=== PATIENT | male | born 1940 | race Caucasian/White ===

== ENCOUNTER 2017-05-11 20:47 | Inpatient (IN) | payer MEDICARE, MEDICAID ==
[~2017-05-11] VITALS: Ht 170.2 cm; Wt 70.3 kg
[~2017-05-11 20:47] MED LIST: AMIO200T2 PO; DABI150C PO; DUTA0.5C PO; TAMS-3 PO
[2017-05-11] MEDS ORDERED: EDOX30TA PO (23:26)
[2017-05-11] MEDS ORDERED: TAMS0.4C34 PO (23:26)
[2017-05-11] MEDS ORDERED: RAMI2.5C PO (23:26)
[2017-05-11] MEDS ORDERED: DUTA0.5C PO (23:26)
[2017-05-11] MEDS ORDERED: ESOM40CA PO (23:26)
[2017-05-11] MEDS ORDERED: METF500T4 PO (23:26)
[2017-05-11] MEDS ORDERED: ROSU10TA PO (23:26)
[2017-05-11] MEDS ORDERED: CHOL100043 PO (23:26)
[2017-05-11] MEDS ORDERED: QUET50TA PO (23:26)
[2017-05-11] MEDS ORDERED: POTA10TA21 PO (23:26)
[2017-05-11] MEDS ORDERED: METO25TA6 PO (23:26)
[2017-05-12 01:03] LABS: BASOPHILS % (AUTO) 0.2 % (0.0-2.0); EOSINOPHILS % (AUTO) 0.5 % (0.0-7.0); HEMATOCRIT 37.4 % (36.7-47.1); HEMOGLOBIN 12.8 g/dL (12.5-16.3); LYMPHOCYTES # (AUTO) 3.9 K/uL (20.0-40.0); LYMPHOCYTES % (AUTO) 48.1 % (20.5-51.5); MEAN CORPUSCULAR HEMOGLOBIN 29.6 uug (23.8-33.4); MEAN CORPUSCULAR HGB CONC 34 g/dL (32.5-36.3); MEAN CORPUSCULAR VOLUME 86.1 fL (73.0-96.2); MONOCYTES # (AUTO) 0.6 K/uL (2.0-10.0); MONOCYTES % (AUTO) 7.6 % (0.0-11.0); NEUTROPHILS # (AUTO) 3.5 K/uL (1.8-8.9); NEUTROPHILS % (AUTO) 43.6 % (38.5-71.5); PLATELET COUNT (AUTO) 107 K/uL (152-348); RED BLOOD CELL COUNT(AUTO) 4.34 MIL/uL (4.06-5.63); WHITE BLOOD COUNT (AUTO) 8.1 K/uL (3.6-10.2)
[2017-05-12 01:08] LABS: CARBON DIOXIDE 29 mmol/L (21-32); CHLORIDE 106 mmol/L (98-107); CREATININE 0.9 mg/dL (0.6-1.3); GLUCOSE 156 mg/dL (74-106); POTASSIUM 3.7 mmol/L (3.5-5.1); UREA NITROGEN, BLOOD 13 mg/dL (7-18)
[2017-05-12 01:20] LABS: ALANINE AMINOTRANSFERASE 31 U/L (16-63); ALKALINE PHOSPHATASE 48 U/L (50-136); ASPARTATE AMINOTRANSFERASE 14 U/L (15-37); BILIRUBIN,DIRECT 0.2 mg/dL (0.0-0.2); BILIRUBIN,TOTAL 0.8 mg/dL (0.2-1.0); TOTAL PROTEIN, SERUM 5.7 g/dL (6.4-8.2)
[2017-05-12] MEDS ORDERED: ALBUTEROL SULFATE 2.5 MG/ 0.5 ML NEBU NEB PRN (03:00)
[2017-05-12] MEDS ORDERED: DEXTROSE 50% 50 ML DISP.SYRIN IV PRN (03:15)
[2017-05-12] MEDS ORDERED: ACETAMINOPHEN 325 MG TABLET PO ONE (06:15)
[2017-05-12] MEDS ORDERED: ACETAMINOPHEN ES 500 MG TABLET ONE (06:28)
[2017-05-12] MEDS: BLOOD SUGAR DIAGNOSTIC 1 EACH STRIP VI SCH ×4 (08:00→21:21)
[2017-05-12] MEDS ORDERED: INSULIN REGULAR, HUMAN 300 UNIT/3 ML VIAL ONE (08:26)
[2017-05-12] MEDS ORDERED: POTASSIUM CITRATE 15 MEQ PO SCH (09:00)
[2017-05-12] MEDS ORDERED: Medication Not On Formulary EA (Esomeprazole Mag Trihydrate (Nexium) 40 MG) PO SCH (09:00)
[2017-05-12] MEDS ORDERED: EDOXABAN TOSYLATE 30 MG PO SCH (09:00)
[2017-05-12] MEDS ORDERED: Medication Not On Formulary EA (Rosuvastatin Calcium (Crestor) 10 MG) PO SCH (09:00)
[2017-05-12] MEDS ORDERED: DUTASTERIDE 0.5 MG CAPSULE PO SCH (09:00)
[2017-05-12] MEDS ORDERED: RAMIPRIL 2.5 MG CAPSULE PO SCH (09:00)
[2017-05-12] MEDS ORDERED: CHOLECALCIFEROL 1,000 UNIT TABLET PO SCH (09:00)
[2017-05-12] MEDS ORDERED: METOPROLOL TARTRATE 25 MG TABLET PO SCH (09:00)
[2017-05-12] MEDS: FUROSEMIDE 40 MG/4 ML VIAL IV SCH ×2 (09:39→21:05)
[2017-05-12] MEDS: TAMSULOSIN HCL 0.4 MG CAP.SR.24H PO SCH (09:40)
[2017-05-12] MEDS ORDERED: FUROSEMIDE 40 MG/4 ML VIAL ONE (09:52)
[2017-05-12] MEDS ORDERED: TAMSULOSIN HCL 0.4 MG CAP.SR.24H ONE (09:52)
[2017-05-12] MEDS ORDERED: METOPROLOL TARTRATE 50 MG TABLET ONE (10:09)
[2017-05-12] MEDS: PANTOPRAZOLE SODIUM 40 MG TABLET.DR PO SCH (11:45)
[2017-05-12] MEDS: CHOLECALCIFEROL 1,000 UNIT TABLET PO SCH (11:45)
[2017-05-12] MEDS: DUTASTERIDE 0.5 MG CAPSULE PO SCH (11:45)
[2017-05-12] MEDS: RAMIPRIL 2.5 MG CAPSULE PO SCH (11:46)
[2017-05-12] MEDS ORDERED: PANTOPRAZOLE SODIUM 40 MG TABLET.DR PO ONE (11:57)
[2017-05-12] MEDS: ALBUTEROL SULFATE 2.5 MG/3 ML NEBU NEB PRN (19:03)
[2017-05-12] MEDS ORDERED: ALBUTEROL SULFATE 2.5 MG/3 ML NEBU ONE (19:25)
[2017-05-12] MEDS ORDERED: Medication Not On Formulary EA (Quetiapine Fumarate (Seroquel) 50 MG) PO SCH (21:00)
[2017-05-12] MEDS: ATORVASTATIN 10 MG TABLET PO SCH (21:03)
[2017-05-12] MEDS: QUETIAPINE FUMARATE 25 MG TABLET PO SCH (21:03)
[2017-05-12 21:08] VITALS: BP 126/86
[2017-05-12 21:21] VITALS: BP 126/86
[2017-05-12] MEDS: INSULIN REGULAR, HUMAN 300 UNITS/3 ML VIAL SQ PRN (21:22)
[2017-05-13] VITALS: BP 102/70
[2017-05-13 04:00] VITALS: BP 106/79
[2017-05-13] MEDS: PANTOPRAZOLE SODIUM 40 MG TABLET.DR PO SCH (06:07)
[2017-05-13] MEDS: BLOOD SUGAR DIAGNOSTIC 1 EACH STRIP VI SCH ×4 (06:36→20:20)
[2017-05-13 07:58] LABS: BASOPHILS % (AUTO) 0.1 % (0.0-2.0); EOSINOPHILS % (AUTO) 0.4 % (0.0-7.0); HEMATOCRIT 40.8 % (36.7-47.1); HEMOGLOBIN 14.1 g/dL (12.5-16.3); LYMPHOCYTES # (AUTO) 5.2 K/uL (20.0-40.0); LYMPHOCYTES % (AUTO) 52.4 % (20.5-51.5); MEAN CORPUSCULAR HEMOGLOBIN 29.9 uug (23.8-33.4); MEAN CORPUSCULAR HGB CONC 35 g/dL (32.5-36.3); MEAN CORPUSCULAR VOLUME 86.4 fL (73.0-96.2); MONOCYTES # (AUTO) 0.6 K/uL (2.0-10.0); NEUTROPHILS # (AUTO) 4.1 K/uL (1.8-8.9); NEUTROPHILS % (AUTO) 41.1 % (38.5-71.5); PLATELET COUNT (AUTO) 130 K/uL (152-348); RED BLOOD CELL COUNT(AUTO) 4.72 MIL/uL (4.06-5.63); WHITE BLOOD COUNT (AUTO) 9.9 K/uL (3.6-10.2)
[2017-05-13] MEDS: INSULIN REGULAR, HUMAN 300 UNIT/3 ML VIAL SQ PRN ×3 (08:04→17:08)
[2017-05-13 08:40] LABS: CARBON DIOXIDE 29 mmol/L (21-32); CHLORIDE 104 mmol/L (98-107); GLUCOSE 169 mg/dL (74-106); MAGNESIUM 1.5 mg/dL (1.8-2.4); PHOSPHOROUS 3.8 mg/dL (2.5-4.9); POTASSIUM 3.3 mmol/L (3.5-5.1); UREA NITROGEN, BLOOD 17 mg/dL (7-18)
[2017-05-13] MEDS: CHOLECALCIFEROL 1,000 UNIT TABLET PO SCH (09:02)
[2017-05-13] MEDS: TAMSULOSIN HCL 0.4 MG CAP.SR.24H PO SCH (09:02)
[2017-05-13] MEDS: FUROSEMIDE 40 MG/4 ML VIAL IV SCH (09:02)
[2017-05-13] MEDS: DUTASTERIDE 0.5 MG CAPSULE PO SCH (09:02)
[2017-05-13] MEDS: RAMIPRIL 2.5 MG CAPSULE PO SCH (09:03)
[2017-05-13] MEDS: ALBUTEROL SULFATE 2.5 MG/3 ML NEBU NEB PRN (09:24)
[2017-05-13 09:44] LABS: EOSINOPHILS % (MANUAL) 1 % (0-8); LYMPHOCYTES % (MANUAL) 46 % (20-40); MONOCYTES % (MANUAL) 4 % (2-10); NEUTROPHILS % (MANUAL) 49 % (42-75)
[2017-05-13 11:33] VITALS: BP 99/50
[2017-05-13] MEDS ORDERED: MAGNESIUM SULFATE 1 GM in IV DEXTROSE 5% 50 ML IV ONE (11:45)
[2017-05-13] MEDS ORDERED: POTASSIUM CHLORIDE 20 MEQ TAB.PRT.SR PO ONE (11:45)
[2017-05-13] MEDS ORDERED: MAGNESIUM SULFATE/D5W 100 ML IV SCH (12:15)
[2017-05-13] MEDS ORDERED: ALBUTEROL SULFATE 2.5 MG/3 ML NEBU NEB SCH (13:30)
[2017-05-13] MEDS: ALBUTEROL SULFATE 2.5 MG/3 ML NEBU NEB SCH ×3 (13:57→23:30)
[2017-05-13] MEDS: METOPROLOL TARTRATE 25 MG TABLET PO SCH (14:00)
[2017-05-13 15:06] VITALS: BP 105/56
[2017-05-13 20:00] VITALS: BP 107/58
[2017-05-13] MEDS: QUETIAPINE FUMARATE 25 MG TABLET PO SCH (20:06)
[2017-05-13] MEDS: ATORVASTATIN 10 MG TABLET PO SCH (20:06)
[2017-05-13] MEDS: INSULIN REGULAR, HUMAN 300 UNITS/3 ML VIAL SQ PRN (20:21)
[2017-05-13] MEDS ORDERED: diphenhydrAMINE 50 MG CAPSULE PO ONE (21:00)
[2017-05-14] VITALS: BP 107/55
[2017-05-14] MEDS: ALBUTEROL SULFATE 2.5 MG/3 ML NEBU NEB SCH ×5 (03:27→19:30)
[2017-05-14 04:00] VITALS: BP 100/60
[2017-05-14] MEDS: PANTOPRAZOLE SODIUM 40 MG TABLET.DR PO SCH (06:12)
[2017-05-14] MEDS: BLOOD SUGAR DIAGNOSTIC 1 EACH STRIP VI SCH ×3 (06:32→17:00)
[2017-05-14] MEDS: INSULIN REGULAR, HUMAN 300 UNIT/3 ML VIAL SQ PRN ×2 (08:30→17:30)
[2017-05-14] MEDS: DUTASTERIDE 0.5 MG CAPSULE PO SCH (08:45)
[2017-05-14] MEDS: TAMSULOSIN HCL 0.4 MG CAP.SR.24H PO SCH (08:45)
[2017-05-14] MEDS: RAMIPRIL 2.5 MG CAPSULE PO SCH (08:45)
[2017-05-14] MEDS: POTASSIUM CHLORIDE 8 MEQ CAPSULE.SA PO SCH ×2 (08:45→17:30)
[2017-05-14] MEDS: CHOLECALCIFEROL 1,000 UNIT TABLET PO SCH (08:46)
[2017-05-14] MEDS: METOPROLOL TARTRATE 25 MG TABLET PO SCH (08:46)
[2017-05-14 11:44] VITALS: BP 106/64
[2017-05-14] MEDS ORDERED: OSEL75CA PO (14:35)
[2017-05-14 15:28] VITALS: BP 103/70
[2017-05-14 20:00] VITALS: BP 117/73
== END 2017-05-14 19:45 | disposition home or self-care (01) | DRG 292 ==
LOC: ER 20:48 → TRANSITION 05-12 10:37 → TELE 05-12 20:20
PROVIDERS: ADMIT Internal Medicine
DX: I11.0 Hypertensive heart disease with heart failure (principal); D68.59 Other primary thrombophilia; I48.0 Paroxysmal atrial fibrillation; I50.33 Acute on chronic diastolic (congestive) heart failure; J22 Unspecified acute lower respiratory infection; B97.89 Other viral agents as the cause of diseases classified elsewhere; Z95.0 Presence of cardiac pacemaker; Z79.84 Long term (current) use of oral hypoglycemic drugs; G89.29 Other chronic pain; M54.5 Low back pain; K21.9 Gastro-esophageal reflux disease without esophagitis; E78.5 Hyperlipidemia, unspecified; N40.0 Benign prostatic hyperplasia without lower urinary tract symptoms; Z79.01 Long term (current) use of anticoagulants; Z79.899 Other long term (current) drug therapy; E11.9 Type 2 diabetes mellitus without complications
CPT/HCPCS: 36415; 70030-TC; 71045; 83605; 83735; 84100; 85025; 85730; 87040; 87400; 93005; 93307; 94640; A4663; J1815; J1940; J3475; J3490; J7050; J7060; Q0163

== ENCOUNTER 2022-06-28 21:20 | Emergency (ER) | payer MEDICARE, OTHER ==
[~2022-06-28] VITALS: Ht 170.2 cm; Wt 56.7 kg
[~2022-06-28 21:20] MED LIST changes: -AMIO200T2 PO; +CHOL100043 PO; -DABI150C PO; +EDOX30TA2 PO; +ESOM40CA PO; +METF-440 PO; +METO25TA6 PO; +OSEL75CA PO; +POTA10TA21 PO; +QUET50TA PO; +RAMI2.5C55 PO; +ROSU10TA2 PO; -TAMS-3 PO; +TAMS0.4C34 PO
--- NOTE | 2022-06-28 22:06 | NUR ---
Dr Yanez at bedside MSE in progress
[2022-06-28 22:34] LABS: HEMATOCRIT 38.9 % (36.7-47.1); MEAN CORPUSCULAR HEMOGLOBIN 29.6 uug (23.8-33.4); MEAN CORPUSCULAR VOLUME 89.3 fL (73.0-96.2); PLATELET COUNT (AUTO) 113 K/uL (152-348)
[2022-06-28 22:43] LABS: CARBON DIOXIDE 31 mmol/L (21-32); CHLORIDE 105 mmol/L (98-107); CREATININE 1.6 mg/dL (0.6-1.3); GLUCOSE 108 mg/dL (74-106); POTASSIUM 4.4 mmol/L (3.5-5.1); UREA NITROGEN, BLOOD 28 mg/dL (7-18)
[2022-06-28 22:51] LABS: ALANINE AMINOTRANSFERASE 46 U/L (16-63); ALKALINE PHOSPHATASE 42 U/L (50-136); ASPARTATE AMINOTRANSFERASE 24 U/L (15-37); BILIRUBIN,DIRECT 0.1 mg/dL (0.0-0.2); BILIRUBIN,TOTAL 0.5 mg/dL (0.2-1.0); TOTAL PROTEIN, SERUM 6.1 g/dL (6.4-8.2)
[2022-06-28 23:03] LABS: *BILIRUBIN,URIN NEGATIVE (NEGATIVE); *BLOOD, URINE NEGATIVE (NEGATIVE); *CLARITY,URINE CLEAR (CLEAR); *COLOR,URINE YELLOW (YELLOW); *KETONES,URINE TRACE (NEGATIVE); *UROBILINOGEN,URINE 0.2 E.U./dl (NORMAL); LEUKOCYTE ESTERASE ,URINE NEGATIVE (NEGATIVE); NITRITE, URINE NEGATIVE (NEGATIVE); PH,URINE 5.5 (5.0-8.0); UGLUCOSE NEGATIVE (NEGATIVE)
[2022-06-28 23:12] LABS: MAGNESIUM 1.6 mg/dL (1.8-2.4)
[2022-06-28] MEDS ORDERED: CYANOCOBALAMIN 1000 MCG/ML VIAL IM ONE (23:30)
[2022-06-28] MEDS ORDERED: MAGNESIUM SULFATE/D5W 300 ML ONE (23:48)
[2022-06-28] MEDS ORDERED: CYANOCOBALAMIN 1000 MCG/ML VIAL ONE (23:48)
[2022-06-28] MEDS: MAGNESIUM SULFATE/D5W 100 ML IV SCH (23:55)
[2022-06-29] MEDS: MAGNESIUM SULFATE/D5W 100 ML IV SCH ×2 (00:30→00:37)
[2022-06-29] MEDS ORDERED: BISA10SU61 RC (00:48)
[2022-06-29] MEDS ORDERED: BISA-79 PO (00:48)
[2022-06-29] MEDS ORDERED: BLOO-1730 MC (02:23)
[2022-06-29] MEDS ORDERED: SYRI-29 MC (02:28)
[2022-06-29] MEDS ORDERED: MECO10006 IM (02:28)
--- NOTE | 2022-06-29 02:52 | NUR ---
Patient discharged to home in stable condition. Written and verbal after care instructions given. Patient verbalizes understanding of instructions. Stressed follow up or return to ER for worsening s/s. Patient is a/ox4, NAD noted, patient is able to walk with steady gait, accompanied by hi daughter
[2022-06-29 02:53] VITALS: BP 137/83
== END 2022-06-29 03:08 | disposition home or self-care (01) ==
LOC: ER 21:22
DX: R20.2 Paresthesia of skin (principal); E53.8 Deficiency of other specified B group vitamins; K59.00 Constipation, unspecified; E83.42 Hypomagnesemia; I48.91 Unspecified atrial fibrillation; Z95.0 Presence of cardiac pacemaker; K21.9 Gastro-esophageal reflux disease without esophagitis; N40.0 Benign prostatic hyperplasia without lower urinary tract symptoms; C91.10 Chronic lymphocytic leukemia of B-cell type not having achieved remission
CPT/HCPCS: 99285; 96365; 71045; 80076; 80048; 81003; 82607; 83735; 85025; 84484; 36415; 93005; 74021; 96372; 96366; J3420; J3475; A4663

== ENCOUNTER 2022-08-23 21:58 | Emergency (ER) | payer MEDICARE, OTHER ==
[~2022-08-23] VITALS: Ht 162.6 cm; Wt 65.8 kg
[~2022-08-23 21:58] MED LIST changes: +BISA-79 PO; +BISA10SU61 RC; +BLOO-1730 MC; +MECO10006 IM; +SYRI-29 MC
[2022-08-23] MEDS ORDERED: CEFTRIAXONE 1 G in IV DEXTROSE 5% 50 ML IV ONE (22:30)
[2022-08-23] MEDS ORDERED: CEFTRIAXONE /D5W 50ML IVPB **ER PYXIS IV ONE (22:35)
[2022-08-23 22:49] LABS: HEMATOCRIT 36.7 % (36.7-47.1); MEAN CORPUSCULAR HEMOGLOBIN 30.2 uug (23.8-33.4); MEAN CORPUSCULAR VOLUME 89.7 fL (73.0-96.2); PLATELET COUNT (AUTO) 91 K/uL (152-348)
[2022-08-23 22:52] LABS: CARBON DIOXIDE 31 mmol/L (21-32); CHLORIDE 106 mmol/L (98-107); CREATININE 1.2 mg/dL (0.6-1.3); GLUCOSE 127 mg/dL (74-106); POTASSIUM 4.6 mmol/L (3.5-5.1); UREA NITROGEN, BLOOD 26 mg/dL (7-18)
[2022-08-23] MEDS ORDERED: SULFAMETH/TRIMETH 800/160 MG TABLET PO ONE (23:15)
[2022-08-23] MEDS ORDERED: SULFAMETH/TRIMETH 800/160 MG TABLET ONE (23:44)
--- NOTE | 2022-08-24 00:11 | NUR ---
Patient discharged to home in stable condition. Written and verbal after care instructions given. Patient verbalizes understanding of instructions. Stressed follow up or return to ER for worsening s/s.
[2022-08-24] MEDS ORDERED: SULF1TAB48 PO ×2 (00:15→11:26)
[2022-08-24 00:24] VITALS: BP 133/88
== END 2022-08-24 00:31 | disposition home or self-care (01) ==
LOC: ER 21:58
DX: L03.115 Cellulitis of right lower limb (principal); M71.21 Synovial cyst of popliteal space [Baker], right knee; I48.91 Unspecified atrial fibrillation; K21.9 Gastro-esophageal reflux disease without esophagitis; E11.9 Type 2 diabetes mellitus without complications; Z95.0 Presence of cardiac pacemaker; Z88.1 Allergy status to other antibiotic agents; Z79.899 Other long term (current) drug therapy
CPT/HCPCS: 99284; 96365; 93971; 80048; 85025; 36415; 73590; J0696; A4663

== ENCOUNTER 2022-08-25 15:05 | Emergency (ER) | payer MEDICARE, OTHER ==
[~2022-08-25] VITALS: Ht 170.2 cm; Wt 75.3 kg
[~2022-08-25 15:05] MED LIST changes: +SULF1TAB48 PO
[2022-08-25] MEDS ORDERED: NEOMY/BACITRAC/POLYMI OINT 28.35 GM TUBE ONE (15:18)
[2022-08-25 15:33] VITALS: BP 136/70
[2022-08-25] MEDS ORDERED: NEOMY/BACITRA/POLYMYXIN B OINT UD PACKET TP ONE (15:45)
== END 2022-08-25 15:33 | disposition home or self-care (01) ==
LOC: ER 15:05
DX: L97.919 Non-pressure chronic ulcer of unspecified part of right lower leg with unspecified severity (principal); I48.91 Unspecified atrial fibrillation; K21.9 Gastro-esophageal reflux disease without esophagitis; E11.9 Type 2 diabetes mellitus without complications; Z95.0 Presence of cardiac pacemaker; Z88.1 Allergy status to other antibiotic agents; Z79.899 Other long term (current) drug therapy
CPT/HCPCS: A4663

== ENCOUNTER 2024-09-25 12:12 | Emergency (ER) | payer MEDICARE, OTHER ==
[~2024-09-25] VITALS: Ht 170.2 cm; Wt 79.4 kg
[2024-09-25 12:48] LABS: CARBON DIOXIDE 27 mmol/L (21-32); CHLORIDE 106 mmol/L (98-107); CREATININE 1.1 mg/dL (0.6-1.3); GLUCOSE 127 mg/dL (74-106); POTASSIUM 4.4 mmol/L (3.5-5.1); SODIUM SERUM 143 mmol/L (136-145); UREA NITROGEN, BLOOD 24 mg/dL (7-18)
[2024-09-25] MEDS ORDERED: SERT50TA PO (12:49)
[2024-09-25] MEDS ORDERED: GABA300C PO (12:49)
[2024-09-25] MEDS ORDERED: TRIA0.2585 PO (12:49)
[2024-09-25] MEDS ORDERED: DUTA0.5C37 PO (12:49)
[2024-09-25] MEDS ORDERED: LISI10TA29 PO (12:49)
[2024-09-25] MEDS ORDERED: AMIO100T4 PO (12:49)
[2024-09-25] MEDS ORDERED: SITA50TA GT (12:49)
[2024-09-25] MEDS ORDERED: TRAM50TA2 PO (12:49)
[2024-09-25] MEDS ORDERED: LINA290C PO (12:49)
[2024-09-25] MEDS ORDERED: METO-356 PO (12:49)
[2024-09-25] MEDS ORDERED: ASPI81TA31 PO (12:49)
[2024-09-25] MEDS ORDERED: CHOL10005 PO (12:49)
[2024-09-25] MEDS ORDERED: METF-442 PO (12:49)
[2024-09-25] MEDS ORDERED: APIX2.5T PO (12:49)
[2024-09-25] MEDS ORDERED: METO-295 PO (12:49)
[2024-09-25] MEDS ORDERED: FOLI1TAB27 PO (12:49)
[2024-09-25] MEDS ORDERED: CARB1TAB21 PO (12:49)
[2024-09-25] MEDS ORDERED: OLAN2.5T3 PO (12:49)
[2024-09-25] MEDS ORDERED: TAMS-3 PO (12:49)
[2024-09-25 12:52] LABS: ETHANOL < 3 MG/DL (0-10)
[2024-09-25 12:58] LABS: ACETAMINOPHEN < 2.0 ug/mL (10-30); ALANINE AMINOTRANSFERASE 12 U/L (16-63); ALBUMIN 3.3 g/dL (3.4-5.0); ALKALINE PHOSPHATASE 51 U/L (50-136); ASPARTATE AMINOTRANSFERASE 15 U/L (15-37); BILIRUBIN,DIRECT 0.3 mg/dL (0.0-0.2); BILIRUBIN,TOTAL 0.9 mg/dL (0.2-1.0); TOTAL PROTEIN, SERUM 5.9 g/dL (6.4-8.2)
[2024-09-25 13:03] LABS: AMMONIA < 10 umol/L (11-32); BASOPHILS % (AUTO) 0.2 % (0.0-2.0); EOSINOPHILS # (AUTO) 0.1 K/uL (0.0-0.7); EOSINOPHILS % (AUTO) 0.4 % (0.0-7.0); HEMATOCRIT 41.4 % (36.7-47.1); HEMOGLOBIN 13.6 g/dL (12.5-16.3); LYMPHOCYTES # (AUTO) 6.4 K/uL (0.8-4.8); LYMPHOCYTES % (AUTO) 39.8 % (20.5-51.5); MEAN CORPUSCULAR HGB CONC 33 g/dL (32.5-36.3); MEAN CORPUSCULAR VOLUME 88.3 fL (73.0-96.2); MONOCYTES # (AUTO) 1.2 K/uL (0.1-1.30); MONOCYTES % (AUTO) 7.2 % (0.0-11.0); NEUTROPHILS # (AUTO) 8.5 K/uL (1.8-8.9); NEUTROPHILS % (AUTO) 52.4 % (38.5-71.5); PLATELET COUNT (AUTO) 104 K/uL (152-348); RED BLOOD CELL COUNT(AUTO) 4.69 MIL/uL (4.06-5.63); RED CELL DISTRIBUTION WIDTH 14.6 % (12.1-16.2); WHITE BLOOD COUNT (AUTO) 16.1 K/uL (3.6-10.2)
[2024-09-25 13:08] LABS: THYROID STIMULATING HORMONE 1.721 mIU/mL (0.358-3.740)
[2024-09-25 13:19] LABS: *BILIRUBIN,URIN NEGATIVE (NEGATIVE); *BLOOD, URINE 2+ (NEGATIVE); *CLARITY,URINE CLEAR (CLEAR); *COLOR,URINE YELLOW (YELLOW); *KETONES,URINE NEGATIVE (NEGATIVE); *PROTEIN,URINE NEGATIVE (NEGATIVE); *UROBILINOGEN,URINE 0.2 E.U./dl (NORMAL); LEUKOCYTE ESTERASE ,URINE NEGATIVE (NEGATIVE); NITRITE, URINE NEGATIVE (NEGATIVE); PH,URINE 5.5 (5.0-8.0); UGLUCOSE NEGATIVE (NEGATIVE)
[2024-09-25 13:30] LABS: *AMPHETAMINE, URINE NEGATIVE (NEGATIVE); *BARBITURATE, URINE NEGATIVE (NEGATIVE); *BENZODIAZEPINE, URINE POSITIVE (NEGATIVE); *CANNABINOID, URINE NEGATIVE (NEGATIVE); *COCCAINE, URINE NEGATIVE (NEGATIVE); *OPIATE, URINE POSITIVE (NEGATIVE); *PHENCYCLIDINE SCREEN,URINE NEGATIVE (NEGATIVE); FENTANYL, URINE NEGATIVE (NEGATIVE)
[2024-09-25 13:41] LABS: BACTERIA,URINE FEW /HPF (NONE SEEN); RBC,URINE 20-50 /HPF (0-3); SQUAMOUS EPITHELIAL CELL,UR FEW /HPF (NONE SEEN)
[2024-09-25 13:42] LABS: CALCIUM OXALATE CRYSTALS,UR FEW /HPF (NONE SEEN)
[2024-09-25 15:49] VITALS: BP 115/81; O2SAT 95
== END 2024-09-25 15:49 | disposition home or self-care (01) ==
LOC: ER 12:12
DX: R53.1 Weakness (principal); R07.89 Other chest pain; R41.82 Altered mental status, unspecified; E11.42 Type 2 diabetes mellitus with diabetic polyneuropathy; E78.5 Hyperlipidemia, unspecified; G89.29 Other chronic pain; I10 Essential (primary) hypertension; I48.91 Unspecified atrial fibrillation; K21.9 Gastro-esophageal reflux disease without esophagitis; N40.0 Benign prostatic hyperplasia without lower urinary tract symptoms; Z79.01 Long term (current) use of anticoagulants; Z79.82 Long term (current) use of aspirin; Z79.84 Long term (current) use of oral hypoglycemic drugs; Z79.899 Other long term (current) drug therapy; Z88.1 Allergy status to other antibiotic agents
CPT/HCPCS: 36415; 70450; 71045; 83605; 84443; 84484; 85025; 85730; 87040; 87086; A4606; A4663; G0480

== ENCOUNTER 2024-10-14 20:33 | Emergency (ER) | payer MEDICARE, OTHER ==
[~2024-10-14] VITALS: Ht 162.6 cm; Wt 62.6 kg
[~2024-10-14 20:33] MED LIST changes: +AMIO100T4 PO; +APIX2.5T PO; +ASPI81TA31 PO; +CARB1TAB21 PO; +CHOL10005 PO; +DUTA0.5C37 PO; +FOLI1TAB27 PO; +GABA300C PO; +LINA290C PO; +LISI10TA29 PO; +METF-442 PO; +METO-295 PO; +METO-356 PO; +OLAN2.5T3 PO; +SERT50TA PO; +SITA50TA GT; +TAMS-3 PO; +TRAM50TA2 PO; +TRIA0.2585 PO
[2024-10-14 21:31] LABS: BASOPHILS # (AUTO) 0.1 K/UL (0.0-0.2); BASOPHILS % (AUTO) 0.7 % (0.0-2.0); EOSINOPHILS % (AUTO) 0.1 % (0.0-7.0); HEMATOCRIT 37.2 % (36.7-47.1); HEMOGLOBIN 12.6 g/dL (12.5-16.3); LYMPHOCYTES % (AUTO) 24.9 % (20.5-51.5); MEAN CORPUSCULAR HEMOGLOBIN 30.3 uug (23.8-33.4); MEAN CORPUSCULAR HGB CONC 34 g/dL (32.5-36.3); MEAN CORPUSCULAR VOLUME 89.3 fL (73.0-96.2); MONOCYTES % (AUTO) 9.9 % (0.0-11.0); NEUTROPHILS % (AUTO) 64.4 % (38.5-71.5); PLATELET COUNT (AUTO) 109 K/uL (152-348); RED BLOOD CELL COUNT(AUTO) 4.16 MIL/uL (4.06-5.63); RED CELL DISTRIBUTION WIDTH 14.7 % (12.1-16.2); WHITE BLOOD COUNT (AUTO) 20.3 K/uL (3.6-10.2)
[2024-10-14 21:33] LABS: DIFFERENTIAL COMMENT 1
[2024-10-14 21:37] LABS: CALCIUM 8.9 mg/dL (8.5-10.1); CARBON DIOXIDE 30 mmol/L (21-32); CHLORIDE 103 mmol/L (98-107); CREATININE 1.1 mg/dL (0.6-1.3); GLUCOSE 159 mg/dL (74-106); POTASSIUM 4.3 mmol/L (3.5-5.1); SODIUM SERUM 138 mmol/L (136-145); UREA NITROGEN, BLOOD 17 mg/dL (7-18)
[2024-10-14 21:50] LABS: ALANINE AMINOTRANSFERASE 19 U/L (16-63); ALBUMIN 3.5 g/dL (3.4-5.0); ALKALINE PHOSPHATASE 58 U/L (50-136); ASPARTATE AMINOTRANSFERASE 13 U/L (15-37); BILIRUBIN,TOTAL 1.2 mg/dL (0.2-1.0); NT-PRO BNP 310 pg/mL (0-125); TOTAL PROTEIN, SERUM 6.2 g/dL (6.4-8.2)
[2024-10-14] MEDS ORDERED: AMIO100T4 PO (22:18)
[2024-10-14] MEDS ORDERED: METF-494 PO (22:18)
[2024-10-14] MEDS ORDERED: FLUT16SP BNOSTRILS (22:51)
[2024-10-14] MEDS ORDERED: LORA10TA7 PO (22:55)
[2024-10-14 23:11] VITALS: BP 131/72; TEMP 99.4; O2SAT 95
== END 2024-10-14 23:16 | disposition home or self-care (01) ==
LOC: ER 20:33
DX: J06.9 Acute upper respiratory infection, unspecified (principal); R53.1 Weakness; R51.9 Headache, unspecified; E11.9 Type 2 diabetes mellitus without complications; I48.91 Unspecified atrial fibrillation; N40.0 Benign prostatic hyperplasia without lower urinary tract symptoms; K21.9 Gastro-esophageal reflux disease without esophagitis; I10 Essential (primary) hypertension; Z79.01 Long term (current) use of anticoagulants; Z79.82 Long term (current) use of aspirin; Z79.84 Long term (current) use of oral hypoglycemic drugs; Z79.899 Other long term (current) drug therapy; Z88.1 Allergy status to other antibiotic agents; Z20.822 Contact with and (suspected) exposure to COVID-19
CPT/HCPCS: 36415; 70450; 71045; 84484; 85025; A4606; A4663